=== PATIENT | female | born 1985 | race Caucasian/White ===

== ENCOUNTER 2020-03-29 12:05 | Inpatient (IN) | payer OTHER ==
[2020-03-29] MEDS ORDERED: BUTORPHANOL TARTRATE 1 MG/ML VIAL IVPB PRN (12:40)
[2020-03-29] MEDS ORDERED: BUTORPHANOL TARTRATE 1 MG/ML VIAL IVPB ONE (12:40)
[2020-03-29] MEDS ORDERED: ELECTROLYTE-148 SOLN 1,000 ML IV SCH (12:45)
--- NOTE | 2020-03-29 12:46 | HP ---
Past Medical History - Admission Chief Complaint: Contractions History of Present Illness: 34yo @ 40.4wks by LMP/sono here in labor No VB/LOF/Ctx. Positive FM Preg c/b: Abnormal GTT, nk 3h GBS neg 02/29/20 PNC @ [facility] care History Source: Patient Limitations to Obtaining History: No Limitations - Past Medical History ...: 2 ...Para: 1 ...Term: 1 ...: 0 ...Spon : 0 ...Induced : 0 ...Living Children: 1 ... Weeks Gestation by Dates: 40.4 ...EDC by Dates: 03/25/20 Additional OB History: Abnormal GTT, normal 3hr GTT Heme/Onc: No: Anemia, B12 Deficiency, Bleeding Disorder, Cancer, Current Chemotherapy, Current Radiation Therapy, Hemochromatosis, Hypercoaguable State, Myeloproliferative Synd, Sickle Cell Disease, Sickle Cell Trait, Thrombocytopenia, Other - Past Surgical History Past Surgical History: Yes: None Hx Myomectomy: No Hx Transabdominal Cerclage: No - Smoking History Have you smoked in the past 12 months: No - Alcohol/Substance Use Hx Alcohol Use: No History of Substance Use: reports: None - Social History Usual Living Arrangement: Yes: With Spouse Do you think of yourself as: Straight/Heterosexual ADL: Independent History of Recent Travel: No Home Medications - Allergies Allergies/Adverse Reactions: Allergies Allergy/AdvReac Type Severity Reaction Status Date / Time No Known Allergies Allergy Verified 03/29/20 13:12 - Home Medications Home Medications: Ambulatory Orders Prenat 115/Iron Fum/Folic/Dss [ 19 Tablet] 1 each PO DAILY 03/29/20 Review of Systems - Review of Systems Constitutional: reports: No Symptoms Physical Exam - Maternity - Abdominal Exam/OB Number of Fetuses: Single Presentation: Vertex Contractions: Yes Regularity: Irregular Intensity: Unaware Monitor Mode: External Heart Rate Location: [facility] Category: I Accelerations: Non-Uniform Decelerations: None - Vaginal Exam/OB Vaginal Bleeding: No Dilatation (cm): 5 Effacement (%): 80 Amniotic Membrane Status: Intact Presentation: Vertex/Position Station: -3 - Physical Exam Edema: No Imaging - Results Ultrasound: Report Reviewed Problem List - Problems (1) 40 weeks gestation of Code(s): Z3A.40 - 40 WEEKS GESTATION OF Assessment/Plan 34yo @ 40.4wks here in labor Admit to L&D Admission labs, including COVID Cat 1 tracing Stadol/epidural prn AROM/Pitocin prn Anticipate TRUPTI Cifuentes
[2020-03-29] MEDS ORDERED: BUTORPHANOL TARTRATE 2 MG/ML VIAL ONE (13:24)
[2020-03-29 13:46] LABS: BASO % 0.7 % (0-2.0); EOS % 1.3 % (0-4.5); HEMATOCRIT 35.2 % (32.4-45.2); HEMOGLOBIN 11.8 GM/dL (10.7-15.3); LYMPH % 18.8 % (8-40); MCH 29.7 pg (25.7-33.7); MCHC 33.5 g/dl (32.0-36.0); MEAN CELL VOLUME 88.6 fl (80-96); MEAN PLT VOLUME 7.6 fl (7.5-11.1); MONO % 4.6 % (3.8-10.2); NEUT % 74.6 % (42.8-82.8); PLATELET COUNT 296 K/MM3 (134-434); RBC 3.97 M/mm3 (3.60-5.2); RDW 14.2 % (11.6-15.6); WHITE BLOOD COUNT 7.1 K/mm3 (4.0-10.0)
[2020-03-29 13:52] VITALS: BMI 36.8
[2020-03-29 13:53] LABS: INR 0.92 (0.83-1.09); PROTHROMBIN TIME (PATIENT) 10.9 SEC (9.7-13.0)
[2020-03-29 13:56] LABS: ACTIVATED PTT 27.2 SECONDS (25.2-36.5)
[2020-03-29 14:14] LABS: BLOOD UREA NITROGEN 7.3 mg/dL (7-18); CREATININE 0.6 mg/dL (0.55-1.3); POTASSIUM 3.9 mmol/L (3.5-5.1)
[2020-03-29] MEDS ORDERED: OXYTOCIN 30 UNITS in 0.9% NS 30 UNIT/500 ML INFUS.BAG IVPB ONE (15:28)
[2020-03-29] MEDS ORDERED: OXYTOCIN 20 UNITS in 0.9% NS 20 UNIT/1,000 ML INFUS.BAG IV ONE (15:28)
[2020-03-29] MEDS ORDERED: LIDOCAINE HCL 1% PRESERVATIVE FREE - 30ML VIAL ONE (15:29)
--- NOTE | 2020-03-29 15:43 | PN ---
Progress Note, Labor Vaginal Exam #1 Labor Exam Date: 03/29/20 Labor Exam Time: 15:40 Heart Rate (range): Cat I Dilatation: 5 Effacement (%): 100 Amniotic Membrane Status: Ruptured Presentation: Vertex/Position Station: -3 Remarks: SROM, but bulging bag- AROM'd Start pitocin Epidural prn Anticipate Miladis Cifuentes MD
[2020-03-29] MEDS ORDERED: OXYTOCIN 30 UNITS in 0.9% NS 30 UNIT/500 ML INFUS.BAG IVPB SCH (16:30)
--- NOTE | 2020-03-29 17:23 | PN ---
Progress Note, Labor Vaginal Exam #2 Labor Exam Date: 03/29/20 Labor Exam Time: 17:20 Heart Rate (range): Cat II Dilatation: 7-8 Effacement (%): 100 Amniotic Membrane Status: Ruptured Presentation: Vertex/Position Station: -3 Remarks: Cervical progress, however, no descent Epidural prn, however, anesthesia unavailable Anticipate TRUPTI Cifuentes MD
--- NOTE | 2020-03-29 18:16 | PN ---
Progress Note, Labor Vaginal Exam #3 Labor Exam Date: 03/29/20 Labor Exam Time: 18:14 Heart Rate (range): Cat II Dilatation: 9 Effacement (%): 100 Amniotic Membrane Status: Ruptured Presentation: Vertex/Position Station: -1 Remarks: Pt pushing involuntarily. Has AL, not able to reduce Pt not pushing effectively Anesthesia unavailable as they are in the OR Continue pitocin, re-evaluate soon Cat II tracing 2/2 variable decels with contractions, quick recovery to baseline, + moderate variability Anticipate Miladis Cifuentes MD
[2020-03-29] MEDS ORDERED: WITCH HAZEL 50% (TUCKS) 40 PAD/JAR PAD TP PRN (20:09)
[2020-03-29] MEDS ORDERED: BENZOCAINE 28 GM HEMORRHOIDAL OINTMENT TP PRN (20:09)
[2020-03-29] MEDS ORDERED: BENZOCAINE 20% 57 GM BOTTLE TP PRN (20:09)
[2020-03-29] MEDS ORDERED: METHYLERGONOVINE MALEATE 0.2 MG/1 ML AMP IM PRN (20:09)
[2020-03-29] MEDS ORDERED: BISACODYL 10 MG SUPP.RECT RC PRN (20:09)
--- NOTE | 2020-03-29 20:09 | PN ---
Delivery - Delivery Vaginal Delivery: Spontaneous Type of Anesthesia: None Episiotomy/Laceration: None EBL (cc): 350 Delivery, Single - Stages of Labor Placenta: Yes: Spontaneous - Condition of Infant Program Technician/Automobile Body Repairer Helper Present: No Infant Gender: Female Position: Right, OA - 1 Minute Total Score: 9 5 Minutes Total Score: 9 - Fisher Feeding Plan Initial Plan: Elected not to breastfeed exclusively throughout hospitalization Remarks - Remarks Remarks: of VFI from RAMOS position from maternal hands and knees position. Body nuchal, delivered through. No meconium. Apgars 9/9. Weight pending to allow skin to skin. Spontaneous delivery of anterior shoulder and body. Cord clamped and cut by provider and partner. Spontaneous delivery of intact placenta with 3VC. Fundus firm. Perineum inspected, no lacerations. EBL 350l. Mother and baby doing well. Esperanza Cifuentes MD
[2020-03-29] MEDS ORDERED: OXYTOCIN 20 UNITS in 0.9% NS 20 UNIT/1,000 ML INFUS.BAG IV SCH (20:15)
[2020-03-30 07:51] LABS: BASO % 0.3 % (0-2.0); EOS % 0.1 % (0-4.5); HEMATOCRIT 32.6 % (32.4-45.2); HEMOGLOBIN 10.6 GM/dL (10.7-15.3); MCH 28.7 pg (25.7-33.7); MCHC 32.5 g/dl (32.0-36.0); MEAN PLT VOLUME 7.5 fl (7.5-11.1); MONO % 6.4 % (3.8-10.2); NEUT % 76.2 % (42.8-82.8); PLATELET COUNT 273 K/MM3 (134-434); RDW 14.1 % (11.6-15.6); WHITE BLOOD COUNT 12.7 K/mm3 (4.0-10.0)
[2020-03-30] MEDS ORDERED: DIPHTH,PERTUSS(ACELL),TET 0.5 ML DISP.SYRIN IM ONE (10:00)
[2020-03-30] MEDS: PRENATAL VITAMINS W/ FOLIC ACID TABLET (FP) PO SCH (10:21)
[2020-03-30] MEDS: FERROUS SO4 325 MG TABLET (FP) PO SCH ×3 (10:21→18:19)
[2020-03-30] MEDS: IBUPROFEN 600 MG TABLET (FP) PO PRN ×2 (10:23→21:47)
[2020-03-30] MEDS: ACETAMINOPHEN 325 MG TABLET (FP) PO PRN ×2 (10:23→21:47)
--- NOTE | 2020-03-30 10:58 | PN ---
Post Progress Note Type of Delivery: Vital Signs: Vital Signs Temperature 98.2 F 03/30/20 06:00 Pulse Rate 80 03/30/20 06:00 Respiratory Rate 18 03/30/20 06:00 Blood Pressure 120/70 03/30/20 06:00 O2 Sat by Pulse Oximetry (%) Uterus: Yes: Fundus below umbilicus Incision: Yes: Dressing dry and intact Abdomen/GI: Yes: Abdomen soft, Tolerating PO Lochia: Yes: Rubra Lochia, amount: Small Extremities: Yes: Calves non-tender Perineum: Yes: Intact Activity: Ambulating - Labs Labs: CBC WBC 12.7 K/mm3 (4.0-10.0) H 03/30/20 07:30 RBC 3.70 M/mm3 (3.60-5.2) 03/30/20 07:30 Hgb 10.6 GM/dL (10.7-15.3) L 03/30/20 07:30 Hct 32.6 % (32.4-45.2) 03/30/20 07:30 MCV 88.0 fl (80-96) 03/30/20 07:30 MCH 28.7 pg (25.7-33.7) 03/30/20 07:30 MCHC 32.5 g/dl (32.0-36.0) 03/30/20 07:30 RDW 14.1 % (11.6-15.6) 03/30/20 07:30 Plt Count 273 K/MM3 (134-434) 03/30/20 07:30 MPV 7.5 fl (7.5-11.1) 03/30/20 07:30 Absolute Neuts (auto) 9.7 K/mm3 (1.5-8.0) H 03/30/20 07:30 Neutrophils % 76.2 % (42.8-82.8) 03/30/20 07:30 Lymphocytes % 17.0 % (8-40) 03/30/20 07:30 Monocytes % 6.4 % (3.8-10.2) 03/30/20 07:30 Eosinophils % 0.1 % (0-4.5) D 03/30/20 07:30 Basophils % 0.3 % (0-2.0) 03/30/20 07:30 Nucleated RBC % 0 % (0-0) 03/30/20 07:30 Problem List - Problems (1) 40 weeks gestation of Code(s): Z3A.40 - 40 WEEKS GESTATION OF Assessment/Plan 34yo s/p , PPD#1 Routine PP care PO pain control Labs reviewed D/C to home later today Miladis Cifuentes
--- NOTE | 2020-03-30 10:59 | DS ---
Physical Examination Vital Signs: Vital Signs Temperature 98.2 F 03/30/20 06:00 Pulse Rate 80 03/30/20 06:00 Respiratory Rate 18 03/30/20 06:00 Blood Pressure 120/70 03/30/20 06:00 O2 Sat by Pulse Oximetry (%) Constitutional: Yes: Well Nourished, No Distress, Calm Eyes: Yes: WNL, Conjunctiva Clear, EOM Intact HENT: Yes: WNL, Atraumatic, Normocephalic Neck: Yes: WNL, Supple, Trachea Midline Cardiovascular: Yes: WNL, Regular Rate and Rhythm Respiratory: Yes: WNL, Regular, CTA Bilaterally Gastrointestinal: Yes: WNL, Normal Bowel Sounds Musculoskeletal: Yes: WNL Extremities: Yes: WNL Edema: No Integumentary: Yes: WNL Neurological: Yes: WNL, Alert, Oriented ...Motor Strength: WNL Psychiatric: Yes: WNL Labs: CBC, BMP 03/30/20 07:30 03/29/20 13:30 Discharge Summary Problems reviewed: Yes Reason For Visit: ADMIT FOR LABOR Current Active Problems 40 weeks gestation of (Acute) Procedures: Principal: Hospital Course: Patient presented in labor She had an uncomplicated She met all milestones She was discharged home on PPD#1 M. MD Vane Condition: Stable - Instructions Diet, Activity, Other Instructions: Regular Diet Follow up in 4 weeks for your visit Referrals: Esperanza Cifuentes MD [Staff Physician] - Disposition: HOME - Home Medications Comprehensive Discharge Medication List: Ambulatory Orders Prenat 115/Iron Fum/Folic/Dss [ 19 Tablet] 1 each PO DAILY 03/29/20 Breast Pump 1 each MC 5XD 30 Days #1 each 03/30/20 Ferrous Sulfate [Feosol] 325 mg PO DAILY #30 tablet 03/30/20 Ibuprofen 600 mg PO Q6H PRN #30 tablet 03/30/20
[2020-03-30] MEDS ORDERED: SENNOSIDES/DOCUSATE COMBO (SENNA PLUS) TABLET (UD) PO PRN (22:00)
[2020-03-31] MEDS: IBUPROFEN 600 MG TABLET (FP) PO PRN (08:56)
[2020-03-31] MEDS: FERROUS SO4 325 MG TABLET (FP) PO SCH ×2 (08:56→14:04)
[2020-03-31] MEDS: ACETAMINOPHEN 325 MG TABLET (FP) PO PRN (08:57)
[2020-03-31] MEDS: PRENATAL VITAMINS W/ FOLIC ACID TABLET (FP) PO SCH (09:02)
[2020-03-31 10:12] VITALS: BP 114/73; PULSE 64; TEMP 97.6
== END 2020-03-31 13:00 | disposition home or self-care (01) | DRG 560 ==
LOC: JLDR 12:05 → J3W 22:30
PROVIDERS: ADMIT Obstetrics & Gynecology; ATTEND Obstetrics & Gynecology
PROC: 3E033VJ Introduction of Other Hormone into Peripheral Vein, Percutaneous Approach (ICD-10-PCS; principal; 2020-03-29)
PROC: 10E0XZZ Delivery of Products of Conception, External Approach (ICD-10-PCS; 2020-03-29)
DX: O48.0 Post-term pregnancy (principal); Z3A.40 40 weeks gestation of pregnancy; Z37.0 Single live birth; O69.89X0 Labor and delivery complicated by other cord complications, not applicable or unspecified
CPT/HCPCS: 36415; 59409; 80048; 85025; 85610; 85730; 86780; 86850; 86880; 86900; 86901; 90715; U0003

== ENCOUNTER 2022-05-26 21:21 | Emergency (ER) | payer OTHER ==
[2022-05-26 21:26] VITALS: BP 123/82; PULSE 85; RESP 17; TEMP 98.1; BMI 37.2
[2022-05-26] MEDS ORDERED: ACETAMINOPHEN 1000 MG/100 ML BAG IVPB ONE (22:16)
[2022-05-26] MEDS ORDERED: ACETAMINOPHEN INJECTION 100 ML IVPB ONE (22:27)
[2022-05-26 22:50] LABS: BASO % 0.4 % (0-2.0); EOS % 1.6 % (0-4.5); HEMATOCRIT 32.3 % (32.4-45.2); HEMOGLOBIN 11.1 GM/dL (10.7-15.3); LYMPH % 34.2 % (8-40); MCH 29.9 pg (25.7-33.7); MCHC 34.4 g/dl (32.0-36.0); MEAN PLT VOLUME 7.1 fl (7.5-11.1); MONO % 6.1 % (3.8-10.2); NEUT % 57.7 % (42.8-82.8); PLATELET COUNT 326 10^3/uL (134-434); RBC 3.71 M/mm3 (3.60-5.2); RDW 12.4 % (11.6-15.6); WHITE BLOOD COUNT 8.4 K/mm3 (4.0-10.0)
[2022-05-26 22:55] LABS: EPI CELLS >36 /uL (0-25.1); HYALINE CASTS 1 /uL (0-3.1); PH,URINE 7.5 (5.0-8.0); URINE APPEARANCE CLEAR; URINE BILIRUBIN NEGATIVE (NEGATIVE); URINE COLOR YELLOW; URINE GLUCOSE (UA) NEGATIVE (NEGATIVE); URINE KETONE NEGATIVE (NEGATIVE); URINE LEUK ESTERASE 1+ (NEGATIVE); URINE NITRITE NEGATIVE (NEGATIVE); URINE PROTEIN NEGATIVE (NEGATIVE); URINE RBC 2 /uL (0-23.9); URINE UROBILINOGEN 0.2 mg/dL (0.2-1.0); URINE WBC 10 /uL (0-25.8)
[2022-05-26 23:12] LABS: URINE BACTERIA 584 /uL (0-1359)
[2022-05-26 23:16] LABS: CALCIUM 8.6 mg/dL (8.5-10.1)
[2022-05-26 23:17] LABS: ALBUMIN 3.1 g/dl (3.4-5.0); BLOOD UREA NITROGEN 8.8 mg/dL (7-18)
[2022-05-26 23:20] LABS: CREATININE 0.4 mg/dL (0.55-1.3)
[2022-05-26 23:21] LABS: BILIRUBIN,TOTAL 0.4 mg/dL (0.2-1); TOT PROT 6.9 g/dl (6.4-8.2)
[2022-05-26] MEDS ORDERED: CEPHALEXIN MONOHYDRATE 500 MG CAPSULE (UD) PO ONE (23:39)
[2022-05-27] MEDS ORDERED: CEPHALEXIN MONOHYDRATE 500 MG CAPSULE (UD) ONE (00:36)
== END 2022-05-27 00:51 | disposition home or self-care (01) ==
LOC: JER 21:21
PROC: 3E033NZ Introduction of Analgesics, Hypnotics, Sedatives into Peripheral Vein, Percutaneous Approach (ICD-10-PCS; principal; 2022-05-26)
DX: O26.892 Other specified pregnancy related conditions, second trimester (principal); R10.9 Unspecified abdominal pain; Z3A.14 14 weeks gestation of pregnancy
CPT/HCPCS: 36415; 76817-TC; 80053; 81003; 84702; 85025; 87086; 99284-25

== ENCOUNTER 2022-06-30 17:40 | Emergency (ER) | payer OTHER ==
[2022-06-30 18:26] VITALS: BP 112/74; PULSE 102; RESP 20; TEMP 97; BMI 36.3
[2022-06-30 20:31] LABS: BASO % 0.4 % (0-2.0); HEMATOCRIT 33.1 % (32.4-45.2); HEMOGLOBIN 11.2 GM/dL (10.7-15.3); LYMPH % 22.7 % (8-40); MCHC 33.8 g/dl (32.0-36.0); MEAN CELL VOLUME 88.9 fl (80-96); MEAN PLT VOLUME 7.6 fl (7.5-11.1); MONO % 6.1 % (3.8-10.2); NEUT % 68.8 % (42.8-82.8); PLATELET COUNT 311 10^3/uL (134-434); RBC 3.72 M/mm3 (3.60-5.2); RDW 12.6 % (11.6-15.6); WHITE BLOOD COUNT 8.2 K/mm3 (4.0-10.0)
[2022-06-30 20:41] LABS: INR 0.97 (0.83-1.09); PROTHROMBIN TIME (PATIENT) 11.1 SEC (9.7-13.0)
[2022-06-30 20:57] LABS: CHLORIDE 105 mmol/L (98-107); SODIUM 138 mmol/L (136-145)
[2022-06-30 21:00] LABS: CALCIUM 9.7 mg/dL (8.5-10.1)
[2022-06-30 21:01] LABS: ALBUMIN 3.3 g/dl (3.4-5.0); ANION GAP 11 MMOL/L (8-16); CO2 22 mmol/L (21-32); GLUCOSE,RANDOM 73 mg/dL (74-106)
[2022-06-30 21:03] LABS: CREATININE 0.5 mg/dL (0.55-1.3); SGOT/AST 12 U/L (15-37); SGPT/ALT 7 U/L (13-61)
[2022-06-30 21:05] LABS: BILIRUBIN,TOTAL 0.3 mg/dL (0.2-1); TOT PROT 7.2 g/dl (6.4-8.2)
[2022-06-30 21:07] LABS: ALK PHOS 68 U/L (45-117)
== END 2022-07-01 01:49 | disposition home or self-care (01) ==
LOC: JER 17:40
DX: O26.892 Other specified pregnancy related conditions, second trimester (principal); R07.1 Chest pain on breathing; Z3A.20 20 weeks gestation of pregnancy
CPT/HCPCS: 0241U-QW; 36415; 71046-TC-FY; 71275-TC; 80053; 84484; 84703; 85025; 85610; 93005; 93010; 93970-TC; 99285-25; Q9967

== ENCOUNTER 2022-12-04 03:40 | Inpatient (IN) | payer OTHER ==
[2022-12-04] MEDS ORDERED: ELECTROLYTE-148 SOLN 1,000 ML IV ONE (04:15)
[2022-12-04 04:57] LABS: BASO % 0.7 % (0-2.0); EOS % 0.6 % (0-4.5); HEMATOCRIT 35.3 % (32.4-45.2); HEMOGLOBIN 11.9 GM/dL (10.7-15.3); LYMPH % 29.2 % (8-40); MCH 28.9 pg (25.7-33.7); MCHC 33.8 g/dl (32.0-36.0); MEAN CELL VOLUME 85.4 fl (80-96); MEAN PLT VOLUME 8.5 fl (7.5-11.1); MONO % 4.4 % (3.8-10.2); NEUT % 65.1 % (42.8-82.8); PLATELET COUNT 294 10^3/uL (134-434); RBC 4.13 M/mm3 (3.60-5.2); RDW 14.2 % (11.6-15.6); WHITE BLOOD COUNT 7.8 K/mm3 (4.0-10.0)
[2022-12-04 05:02] VITALS: BMI 38.7
[2022-12-04 05:10] LABS: INR 0.92 (0.83-1.09); PROTHROMBIN TIME (PATIENT) 10.7 SEC (9.7-13.0)
[2022-12-04 05:13] LABS: ACTIVATED PTT 26.7 SECONDS (25.2-36.5)
[2022-12-04 05:43] LABS: CALCIUM 8.8 mg/dL (8.5-10.1)
[2022-12-04 05:44] LABS: BLOOD UREA NITROGEN 5.2 mg/dL (7-18)
[2022-12-04 05:47] LABS: CREATININE 0.6 mg/dL (0.55-1.3)
[2022-12-04] MEDS ORDERED: BUTORPHANOL TARTRATE 2 MG/ML VIAL IVPB ONE (07:00)
[2022-12-04] MEDS ORDERED: PROMETHAZINE HCL 25 MG/1 ML VIAL IVPB ONE (07:00)
[2022-12-04] MEDS ORDERED: OXYTOCIN 30 UNITS in 0.9% NS 30 UNIT/500 ML INFUS.BAG IVPB ONE (10:04)
[2022-12-04] MEDS: OXYTOCIN 30 UNITS in 0.9% NS 30 UNIT/500 ML INFUS.BAG IVPB SCH (10:10)
[2022-12-04] MEDS ORDERED: NALOXONE HCL 0.4 MG/ML VIAL IVPUSH PRN (12:33)
[2022-12-04] MEDS ORDERED: FENTANYL/BUPIVACAINE/NS/PF - PCEA - 50 ML DISP.SYRIN EP SCH (12:45)
[2022-12-04] MEDS ORDERED: PROMETHAZINE HCL 25 MG/1 ML VIAL ONE (14:15)
[2022-12-04] MEDS ORDERED: BUTORPHANOL TARTRATE 2 MG/ML VIAL ONE (14:15)
[2022-12-04] MEDS ORDERED: OXYTOCIN 20 UNITS in 0.9% NS 20 UNIT/1,000 ML INFUS.BAG IV ONE (19:09)
[2022-12-04] MEDS ORDERED: LIDOCAINE HCL 1% PRESERVATIVE FREE - 30ML VIAL ONE (19:09)
[2022-12-04] MEDS: ELECTROLYTE-148 SOLN 1,000 ML IV SCH (20:15)
[2022-12-04] MEDS ORDERED: AMPICILLIN - 2 GM in SODIUM CHLORIDE 100 ML IVPB ONE (21:36)
[2022-12-04] MEDS ORDERED: AMPICILLIN SODIUM 2 GM VIAL ONE (21:36)
[2022-12-04] MEDS ORDERED: CITRIC ACID/SODIUM CITRATE 30 ML UNIT-DOSE CUP PO ONE (22:28)
[2022-12-04] MEDS ORDERED: morphine SULFATE (PF) 1 MG/2 ML SYRINGE ONE (22:56)
[2022-12-04] MEDS ORDERED: FENTANYL CITRATE/PF 50 MCG/ML VIAL ONE (22:57)
[2022-12-04] MEDS ORDERED: MISOPROSTOL 200 MCG TABLET ONE (23:15)
[2022-12-04] MEDS ORDERED: GENTAMICIN SO4 80 MG/2 ML VIAL ONE ×2 (23:23→23:25)
[2022-12-04] MEDS: OXYTOCIN 20 UNITS in 0.9% NS 20 UNIT/1,000 ML INFUS.BAG IV SCH (23:25)
[2022-12-04] MEDS ORDERED: ONDANSETRON 4 MG/2 ML VIAL ONE (23:31)
[2022-12-04] MEDS ORDERED: OXYTOCIN 10 UNITS/ML VIAL ONE (23:31)
[2022-12-04] MEDS ORDERED: KETOROLAC TROMETHAMINE 30 MG/1 ML VIAL ONE (23:31)
[2022-12-04] MEDS ORDERED: ceFAZolin SODIUM 1 GM VIAL ONE (23:31)
[2022-12-04] MEDS ORDERED: METHYLERGONOVINE MALEATE 0.2 MG/1 ML AMP IM PRN (23:52)
[2022-12-04] MEDS ORDERED: IBUPROFEN 800 MG/8 ML IJ IVPB PRN (23:54)
[2022-12-05] MEDS ORDERED: morphine SULFATE/PF 1 MG/2 ML (2cc Syringe - QUVA) SPIN ONE (00:01)
[2022-12-05] MEDS ORDERED: ONDANSETRON 4 MG/2 ML VIAL IVPUSH PRN (00:01)
[2022-12-05] MEDS ORDERED: ACETAMINOPHEN 1000 MG/100 ML BAG IVPB ONE (00:02)
[2022-12-05] MEDS ORDERED: ceFAZolin 2 GRAM PREMIX BAG IVPB SCH (02:00)
[2022-12-05] MEDS: CEFAZOLIN SODIUM 2 GM in DEXTROSE 5%-WATER 100 ML IVPB SCH ×3 (02:09→18:32)
[2022-12-05 02:14] LABS: CORD BASE EXCESS -5.4 mmol/L (0-2); CORD HCO3 22.4 mmHg (20-29); CORD PCO2 52.1 mmHg (30-78); CORD pH 7.251 (7.14-7.44)
[2022-12-05] MEDS: OXYTOCIN 20 UNITS in 0.9% NS 20 UNIT/1,000 ML INFUS.BAG IV SCH (02:17)
[2022-12-05 02:33] LABS: CORD pH 7.215 (7.14-7.44)
[2022-12-05 02:34] LABS: CORD BASE EXCESS -6.6 mmol/L (0-2); CORD HCO3 21.3 mmHg (20-29); CORD PCO2 51.5 mmHg (30-78)
[2022-12-05 08:21] LABS: BASO % 0.1 % (0-2.0); HEMATOCRIT 30.7 % (32.4-45.2); HEMOGLOBIN 10.4 GM/dL (10.7-15.3); LYMPH % 11.8 % (8-40); MCHC 33.9 g/dl (32.0-36.0); MEAN CELL VOLUME 85.5 fl (80-96); MONO % 4.2 % (3.8-10.2); NEUT % 83.9 % (42.8-82.8); PLATELET COUNT 265 10^3/uL (134-434); RBC 3.59 M/mm3 (3.60-5.2); RDW 14.1 % (11.6-15.6); WHITE BLOOD COUNT 12.3 K/mm3 (4.0-10.0)
[2022-12-05] MEDS: ENOXAPARIN NA (PORCINE) 40 MG/0.4 ML DISP.SYRIN SQ SCH (09:41)
[2022-12-05] MEDS ORDERED: oxyCODONE HCL 5 MG TABLET PO PRN ×2 (11:52)
[2022-12-05] MEDS: SIMETHICONE 80 MG TAB.CHEW (FP) PO PRN (20:12)
[2022-12-05] MEDS ORDERED: BISACODYL 10 MG SUPP.RECT RC PRN (23:52)
[2022-12-06] MEDS: IBUPROFEN 600 MG TABLET (FP) PO PRN ×3 (01:11→15:35)
[2022-12-06] MEDS: SIMETHICONE 80 MG TAB.CHEW (FP) PO PRN ×3 (01:11→22:47)
[2022-12-06] MEDS: CEFAZOLIN SODIUM 2 GM in DEXTROSE 5%-WATER 100 ML IVPB SCH ×3 (02:28→22:49)
[2022-12-06] MEDS: ACETAMINOPHEN 325 MG TABLET (FP) PO PRN ×2 (03:49→22:47)
[2022-12-06] MEDS: ENOXAPARIN NA (PORCINE) 40 MG/0.4 ML DISP.SYRIN SQ SCH (09:41)
[2022-12-06 10:02] LABS: BASO % 0.3 % (0-2.0); EOS % 0.9 % (0-4.5); HEMATOCRIT 30.3 % (32.4-45.2); HEMOGLOBIN 10.6 GM/dL (10.7-15.3); LYMPH % 17.8 % (8-40); MCH 30.3 pg (25.7-33.7); MEAN CELL VOLUME 86.7 fl (80-96); MEAN PLT VOLUME 7.8 fl (7.5-11.1); MONO % 4.6 % (3.8-10.2); NEUT % 76.4 % (42.8-82.8); PLATELET COUNT 246 10^3/uL (134-434); RBC 3.49 M/mm3 (3.60-5.2); RDW 14.6 % (11.6-15.6); WHITE BLOOD COUNT 9.1 K/mm3 (4.0-10.0)
[2022-12-06] MEDS: OXYTOCIN 20 UNITS in 0.9% NS 20 UNIT/1,000 ML INFUS.BAG IV SCH (22:49)
[2022-12-06] MEDS: ELECTROLYTE-148 SOLN 1,000 ML IV SCH (22:50)
[2022-12-06] MEDS: OXYTOCIN 30 UNITS in 0.9% NS 30 UNIT/500 ML INFUS.BAG IVPB SCH (22:50)
[2022-12-06 23:06] VITALS: PULSE 85
[2022-12-07] MEDS: SIMETHICONE 80 MG TAB.CHEW (FP) PO PRN ×2 (04:09→08:49)
[2022-12-07] MEDS: ACETAMINOPHEN 325 MG TABLET (FP) PO PRN (04:09)
[2022-12-07] MEDS: IBUPROFEN 600 MG TABLET (FP) PO PRN (08:48)
[2022-12-07 08:53] VITALS: BP 135/84; RESP 18; TEMP 97.7
[2022-12-07] MEDS: ENOXAPARIN NA (PORCINE) 40 MG/0.4 ML DISP.SYRIN SQ SCH (09:27)
[2022-12-07 09:42] LABS: BASO % 0.3 % (0-2.0); EOS % 1.7 % (0-4.5); HEMATOCRIT 29.7 % (32.4-45.2); HEMOGLOBIN 10.3 GM/dL (10.7-15.3); LYMPH % 20.7 % (8-40); MCH 29.9 pg (25.7-33.7); MCHC 34.7 g/dl (32.0-36.0); MEAN PLT VOLUME 7.5 fl (7.5-11.1); MONO % 4.5 % (3.8-10.2); NEUT % 72.8 % (42.8-82.8); PLATELET COUNT 285 10^3/uL (134-434); RBC 3.45 M/mm3 (3.60-5.2); RDW 14.5 % (11.6-15.6)
== END 2022-12-07 16:20 | disposition home or self-care (01) | DRG 540 ==
LOC: JLDR 03:40 → J3W 12-05 02:00
PROVIDERS: ADMIT Obstetrics & Gynecology; ATTEND Obstetrics & Gynecology
PROC: 10D00Z1 Extraction of Products of Conception, Low, Open Approach (ICD-10-PCS; principal; 2022-12-04)
PROC: 10H073Z Insertion of Monitoring Electrode into Products of Conception, Via Natural or Artificial Opening (ICD-10-PCS; 2022-12-04)
DX: O63.1 Prolonged second stage (of labor) (principal); O42.02 Full-term premature rupture of membranes, onset of labor within 24 hours of rupture; O48.0 Post-term pregnancy; O24.420 Gestational diabetes mellitus in childbirth, diet controlled; Z3A.40 40 weeks gestation of pregnancy; Z37.0 Single live birth
CPT/HCPCS: 36415; 36600; 80048; 82803; 82962; 85025; 85610; 85730; 86780; 86850; 86900; 86901; 88307-TC; 94010; C9803-CS; U0003; U0005

== ENCOUNTER 2023-03-11 04:27 | Day surgery (SDC) | payer OTHER ==
[2023-03-09 11:01] VITALS: BMI 36.7
[2023-03-11] MEDS ORDERED: MIDAZOLAM HCL 2 MG/2 ML SINGLE DOSE VIAL ONE (10:03)
[2023-03-11] MEDS ORDERED: ROCURONIUM BROMIDE 50 MG/5 ML SYRINGE ONE (10:03)
[2023-03-11] MEDS ORDERED: PROPOFOL 20 ML ONE (10:03)
[2023-03-11] MEDS ORDERED: LIDOCAINE HCL/PF 2% SDV 5ML VIAL ONE (10:25)
[2023-03-11] MEDS ORDERED: BUPIVACAINE HCL/PF 0.5% (5MG/ML) 10 ML VIAL IJ ONE (10:49)
[2023-03-11] MEDS ORDERED: ONDANSETRON 4 MG/2 ML VIAL ONE (11:20)
[2023-03-11] MEDS ORDERED: NEOSTIGMINE METHYLSULFATE 0.5 MG/1 ML - 10 ML MDV ONE (11:20)
[2023-03-11] MEDS ORDERED: KETOROLAC TROMETHAMINE 30 MG/1 ML VIAL ONE (11:20)
[2023-03-11] MEDS ORDERED: GLYCOPYRROLATE 0.2 MG/1 ML VIAL ONE (11:20)
[2023-03-11] MEDS ORDERED: oxyCODONE HCL 5 MG TABLET PO PRN (11:46)
[2023-03-11] MEDS ORDERED: ONDANSETRON 4 MG/2 ML VIAL IVPUSH PRN (11:46)
[2023-03-11] MEDS ORDERED: LACTATED RINGERS SOLUTION 1,000 ML IV SCH (12:00)
[2023-03-11 13:44] VITALS: RESP 20
[2023-03-11] MEDS ORDERED: oxyCODONE HCL 5 MG TABLET ONE (13:56)
[2023-03-11 15:13] VITALS: BP 112/60; PULSE 70; TEMP 97.8
== END 2023-03-11 14:30 | disposition home or self-care (01) ==
LOC: JASU-SURG 04:27
PROVIDERS: ATTEND Student in an Organized Health Care Education/Training Program
PROC: 0UT74ZZ Resection of Bilateral Fallopian Tubes, Percutaneous Endoscopic Approach (ICD-10-PCS; principal; 2023-03-11 09:30)
DX: Z30.2 Encounter for sterilization (principal)
CPT/HCPCS: 81025; 88302-TC; 94760